=== PATIENT | female | born 1995 | race Caucasian/White ===

== ENCOUNTER → 2018-03-04 | Outpatient (CLI) | payer OTHER ==
[~2018-03-04] MED LIST: APAP/CODEINE ELI5 M1 OR; DYNACIN100 MG PO
--- NOTE | ~2018-03-04 | 2DMMODE ---
[facility] [place] [address] 2 D/M-MODE ECHOCARDIOGRAM Name: BENITEZSHAWNEEGRICELALEX GUERRERO Room #: REG CL [facility]#: [id number] Admission: 03/04/18 Attend Phys: Kristine George DNP Discharge: Date of : 89 Date of Service: 03/04/18 1526 Report #: [id number] THIS REPORT FOR: //name// APPROVED REPORT Study performed: 03/04/2018 14:14:13 EXAM: Comprehensive 2D, Doppler, and color-flow Echocardiogram Patient Location: Out-Patient Status: routine BSA: 1.63 HR: 64 bpm BP: 104/80 mmHg Rhythm: NSR Other Information Study Quality: Good Indications Fatigue, murmur. 2D Dimensions RVDd: 37.00 mm LVEF(%): 70.95 (>50%) IVSd: 7.16 (7-11mm) LVOT Diam: 19.59 (18-24mm) LVDd: 45.74 mm PWd: 6.80 (7-11mm) Ascending Ao: 25.81 (22-36mm) LVDs: 27.35 (25-40mm) Aortic Root: 24.13 mm Marr's LVEF: 70.95 % Volumes Left Atrial Volume (Systole) Single Plane 4CH: 38.91 mL Single Plane 2CH: 36.49 mL LA ESV Index: 26.00 mL/m2 Aortic Valve AoV Peak Donato.: 1.49 m/s AO Peak Gr.: 8.89 mmHg LVOT Max P.20 mmHg LVOT Max V: 1.14 m/s ROMY Vmax: 2.30 cm2 Mitral Valve E/A Ratio: 2.7 MV Decel. Time: 230.91 ms [facility] [place] [place] [address] 2 D/M-MODE ECHOCARDIOGRAM Name: GRICEL PEARSON Room #: [facility]#: [id number] Admission: 03/04/18 Attend Phys: Kristine George DNP Discharge: Date of : 89 Date of Service: 03/04/18 1526 Report #: [id number] MV E Max Donato.: 0.96 m/s MV A Donato.: 0.36 m/s MV PHT: 66.96 ms IVRT: 110.73 ms Pulmonary Valve PV Peak Donato.: 0.73 m/s PV Peak Gr.: 2.14 mmHg Pulmonary Vein P Vein S: 0.85 m/s P Vein A: 0.18 m/s P Vein D: 0.54 m/s P Vein S/D Ratio: 1.57 Tricuspid Valve RAP Estimate: 5.00 mmHg Left Ventricle The left ventricle is normal size. There is normal LV segmental wall motion. There is normal left ventricular wall thickness. The left ventricular systolic function is normal. LVEF is 55-60%. The left ventricular diastolic function is normal. Right Ventricle The right ventricle is normal size. The right ventricular systolic function is normal. Atria The left atrium size is normal. The right atrium size is normal. Aortic Valve The aortic valve is normal in structure. No aortic regurgitation is present. There is no aortic valvular stenosis. Mitral Valve The mitral valve is normal in structure. Trace mitral regurgitation. No evidence of mitral valve stenosis. Tricuspid Valve The tricuspid valve is normal in structure. Trace tricuspid regurgitation. Unable to assess PA pressure. Pulmonic Valve The pulmonary valve is normal in structure. Mild pulmonic regurgitation. [facility] [address] [place] [address] 2 D/M-MODE ECHOCARDIOGRAM Name: GRICEL PEARSON [facility]: [id number] Admission: 03/04/18 Attend Phys: Kristine George DNP Discharge: Date of : 89 Date of Service: 03/04/18 1526 Report #: [id number] Great Vessels The aortic root is normal in size. IVC is normal in size and collapses >50% with inspiration. Pericardium There is no pericardial effusion. <Conclusion> The left ventricle is normal size. LVEF is 55-60%. The aortic valve is normal in structure. No aortic regurgitation is present. The mitral valve is normal in structure. Trace mitral regurgitation. The tricuspid valve is normal in structure. Trace tricuspid regurgitation. Unable to assess PA pressure. The pulmonary valve is normal in structure. Mild pulmonic regurgitation. There is no pericardial effusion. <ELECTRONICALLY SIGNED> By: Андрей Gold MD 03/04/18 1526 1526 1526 Андрей Gold MD /INF
== END ==
LOC: CV 10:36
DX: I37.1 Nonrheumatic pulmonary valve insufficiency (principal)